=== PATIENT | male | born 1995 | race Caucasian/White ===

== ENCOUNTER 2016-07-10 23:17 | Emergency (ER) | payer SELFPAY ==
[2016-07-10 23:25] VITALS: RESP 16; TEMP 98.1
--- NOTE | 2016-07-11 01:23 | EDPHY ---
H & P Stated Complaint: R ankle injury Time Seen by Provider: 07/10/16 23:41 HPI/ROS: HPI: The patient presents with right ankle pain which began about an hour prior to presentation. He jumped off of a 15-20 foot ledge and immediately had pain in his right ankle. The pain is been constant, is dull and severe, does not radiate. Does not have any numbness or tingling of his foot. He does not have any lower back pain or heel pain. REVIEW OF SYSTEMS Constitutional: No fever, no chills. Eyes: No discharge. ENT: No sore throat. Cardiovascular: No chest pain, no palpitations. Respiratory: No cough, no shortness of breath. Gastrointestinal: No abdominal pain, no vomiting. Genitourinary: No hematuria. Musculoskeletal: No back pain. Skin: No rashes. Neurological: No headache. PMHx: Healthy, college student TRAUMA PHYSICAL General Appearance: Alert, no distress Head: Atraumatic Eyes: Pupils equal, round, reactive Neck: Non- tender, trachea midline Respiratory: Breathing comfortably Skin: No lacerations, No abrasion Extremities: Right ankle is diffusely edematous with tenderness laterally, there is limited range of motion because of pain, he has 2+ DP pulses and his foot is warm. He reports slight decreased sensation to light touch in his toes. Neurological: A&Ox3, GCS=15,normal motor function with 5/5 strength in all 4 extremities, normal sensory exam Source: Patient Exam Limitations: No limitations - Personal History Current Tetanus/Diphtheria Vaccine: Yes Current Tetanus Diphtheria and Acellular Pertussis (TDAP): Yes - Medical/Surgical History Hx Asthma: No Hx Chronic Respiratory Disease: No Hx Diabetes: No Hx Cardiac Disease: No Hx Renal Disease: No Hx Cirrhosis: No Hx Alcoholism: No Hx HIV/AIDS: No Hx Splenectomy or Spleen Trauma: No Other PMH: anxiety - Social History Smoking Status: Never smoked Constitutional: Initial Vital Signs Temperature (C) 36.7 C 07/10/16 23:23 Heart Rate 90 07/10/16 23:23 Respiratory Rate 16 07/10/16 23:23 Blood Pressure 144/75 H 07/10/16 23:23 O2 Sat (%) 96 07/10/16 23:23 O2 Delivery Mode Room Air Allergies/Adverse Reactions: No Known Allergies Allergy (Unverified 07/10/16 23:22) Home Medications: Medication Instructions Recorded DOPamine 07/10/16 Hydrocodone/APAP 5/325 [[place] 1 - 2 tab PO Q6H PRN #20 tab 07/11/16 5/325 (*)] Medical Decision Making - Diagnostics Imaging: X-rays right ankle which show distal fibular fracture with widening of the medial ankle mortise, reviewed by Dr. Couch of Radiology, I reviewed the images independently. Procedures: SPLINT Procedure: Splint placement. A ortho glass posterior short-leg and sugar-tong splint was applied to the right leg by the tech. After application of the splint I returned and re- examined the patient. The splint was adequately immobilizing the joint and distal to the splint the patient's circulation and sensation was intact. 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 He has been unable to walk on his ankle and has severe swelling. He is vascularly intact with strong pulses, he has some diminished sensation of all of his toes but has full range of movement. Differential diagnosis includes ankle fracture, ankle sprain, ankle dislocation. In the emergency room, x-rays were obtained and demonstrate distal fibular fracture with widened ankle mortise. Plan for splint, nonweightbearing with crutches, orthopedic follow-up in the next few days. I have instructed him to rest, ice, elevate the ankle and will give him a short course of pain medication. After splint was placed, the patient's pain was much improved. I have discussed with him the warning signs of compartment syndrome and have instructed him to return if he develops any of these. He will be discharged from the emergency room in good condition. Departure - Departure Disposition: Home, Routine, Self-Care Clinical Impression: Ankle fracture, Closed fibular fracture Condition: Good Instructions: Ankle Fracture (ED), RICE Therapy (ED) Additional Instructions: Return to the emergency room if you develop any redness, decreased sensation, decreased movement, worsening pain. Please do not bear weight on your ankle. You should use the crutches at all times. You should elevate your ankle as much as possible. Please call the orthopedic doctor in the next 2-3 days for follow-up. Referrals: Umair Arevalo MD [Medical Doctor] - As per Instructions Prescriptions: Hydrocodone/APAP 5/325 [[place] 5/325 (*)] 1 - 2 tab PO Q6H PRN #20 tab PRN Reason: Pain, Breakthrough
[2016-07-11 05:18] VITALS: BP 134/70; PULSE 68; O2SAT 97
== END 2016-07-11 01:29 | disposition home or self-care (01) ==
DX: S82.831A Other fracture of upper and lower end of right fibula, initial encounter for closed fracture (principal); W17.89XA Other fall from one level to another, initial encounter; Y99.8 Other external cause status; Y93.39 Activity, other involving climbing, rappelling and jumping off